=== PATIENT | male | born 1945 | race African-American/Black ===

== ENCOUNTER 2017-04-07 20:33 | Inpatient (IN) | payer MEDICARE, MEDICAID ==
--- NOTE | 2017-04-07 21:18 | RAD ---
FRONTAL VIEW CHEST SERIES 04/07/17 CLINICAL HISTORY: Emergency exam, decreased oxygen saturation. FINDINGS: Lucent hyperinflated lungs are present. The cardiac silhouette is accentuated by portable technique. There is vascular calcifications. Ectasia and tortuosity of the thoracic aorta are present. There is osseous degenerative changes. IMPRESSION: COPD. There is no lobar consolidation visualized. POS: [facility]
[2017-04-07 21:29] LABS: #Lymphocytes 1.5 thou/uL (1.20-3.40); #Monocytes 0.6 thou/uL (0.11-0.59); %Basophils 0.4 % (0.0-1.0); %Eosinophils 0.5 % (0.0-10.0); %Lymphocytes 28.3 % (21.0-51.0); %Monocytes 11.6 % (0.0-10.0); %Neutrophils 59.2 % (42.0-75.0); Hemoglobin 10.3 g/dL (14.0-18.0); Mean Corpuscular HGB CONC 32.5 g/dL (32.0-36.0); Mean Corpuscular Hemoglobin 28.9 pg (27.0-31.0); Mean Corpuscular Volume 89.1 fl (80.0-94.0); Mean Platelet Volume 7.4 fL (7.4-10.4); Platelet Count 130 thou/uL (130-400); RBC Distribution Width 12.7 % (11.5-14.5); Red Blood Cell (RBC) Count 3.56 mill/uL (4.70-6.10); White Blood Cell (WBC) Count 5.1 thou/uL (4.8-10.8)
[2017-04-07 21:47] LABS: ALT (SGPT) 26 U/L (8-55); AST (SGOT) 40 U/L (5-34); Alkaline Phosphatase 104 U/L (40-150); Anion Gap 16 mmol/L (10-20); BUN (Urea Nitrogen) 50 mg/dL (8.4-25.7); Bilirubin, Total 0.2 mg/dL (0.2-1.2); CK (CPK) 569 U/L (30-200); Calc. Creatinine Clearance 0 mL/min (70-130); Calcium 9.4 mg/dL (7.8-10.44); Carbon Dioxide 28 mmol/L (23-31); Chloride 103 mmol/L (98-107); Estimated GFR-MDRD 30; Glucose 114 mg/dL (83-110); Potassium 3.8 mmol/L (3.5-5.1); Sodium 143 mmol/L (136-145)
[2017-04-07 21:51] LABS: Troponin I 0.111 ng/mL (< 0.028)
[2017-04-07 21:54] LABS: CKMB 7.7 ng/mL (0-6.6)
[2017-04-07] MEDS ORDERED: Magnesium Sulfate 2 GM/100 ML BAG ONE (22:03)
[2017-04-07] MEDS ORDERED: methylPREDNISolone Sod Succ/PF 125 MG/2 ML VIAL ONE (22:03)
[2017-04-08 00:51] VITALS: BMI 14.6
[2017-04-08 01:11] LABS: Troponin I 0.133 ng/mL (< 0.028)
[2017-04-08] MEDS ORDERED: Ondansetron ODT 4 MG TAB SL PRN (02:12)
[2017-04-08] MEDS ORDERED: Acetaminophen 325 MG TAB PO PRN ×2 (02:12→07:30)
[2017-04-08] MEDS ORDERED: Ondansetron HCl/PF 4 MG/2 ML Vial IVP PRN (02:12)
[2017-04-08 04:46] LABS: Troponin I 0.101 ng/mL (< 0.028)
[2017-04-08] MEDS ORDERED: HYDROcodone/Acetaminophen 5/325 mg Tablet PO PRN (07:30)
[2017-04-08] MEDS ORDERED: Albuterol Sulfate 2.5 mg/3 ml Neb NEB PRN (07:30)
[2017-04-08] MEDS ORDERED: Ondansetron ODT 4 MG TAB PO PRN (07:30)
[2017-04-08 07:49] LABS: #Lymphocytes 0.5 thou/uL (1.20-3.40); #Monocytes 0.1 thou/uL (0.11-0.59); #Neutrophils 2.7 thou/uL (1.40-6.50); %Basophils 0.2 % (0.0-1.0); %Eosinophils 0.2 % (0.0-10.0); %Lymphocytes 15.2 % (21.0-51.0); %Monocytes 4.3 % (0.0-10.0); %Neutrophils 80.1 % (42.0-75.0); Hemoglobin 10.2 g/dL (14.0-18.0); Mean Corpuscular HGB CONC 32.4 g/dL (32.0-36.0); Mean Corpuscular Volume 89.4 fl (80.0-94.0); Mean Platelet Volume 7.5 fL (7.4-10.4); Platelet Count 126 thou/uL (130-400); RBC Distribution Width 12.6 % (11.5-14.5); Red Blood Cell (RBC) Count 3.53 mill/uL (4.70-6.10); White Blood Cell (WBC) Count 3.4 thou/uL (4.8-10.8)
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
[2017-04-08 08:05] LABS: Anion Gap 11 mmol/L (10-20); BUN (Urea Nitrogen) 50 mg/dL (8.4-25.7); Calc. Creatinine Clearance 21 mL/min (70-130); Calcium 9.2 mg/dL (7.8-10.44); Carbon Dioxide 27 mmol/L (23-31); Chloride 105 mmol/L (98-107); Estimated GFR-MDRD 33; Glucose 197 mg/dL (83-110); Magnesium 2.2 mg/dL (1.6-2.6); Potassium 4.4 mmol/L (3.5-5.1); Sodium 139 mmol/L (136-145)
[2017-04-08 08:13] LABS: CKMB 6.8 ng/mL (0-6.6); Critical Call CKMBM RESULT DECREASING
[2017-04-08] MEDS ORDERED: Prevnar 13-Val Conj/PF 0.5 ML SYRINGE IM ONE (09:00)
[2017-04-08] MEDS ORDERED: FLU VACC TS2017-18 (>65YR) 0.5 ML SYRINGE IM ONE (09:00)
--- NOTE | 2017-04-08 10:18 | PDOC.PN ---
- Subjective Encounter Start Date: 04/08/17 Encounter Start Time: 10:17 Mr. Gallo was seen today in follow-up. He says he is breathing better. He denies having any cough or chest pain. - Objective Resuscitation Status: Resuscitation Status FULL:Full Resuscitation MAR Reviewed: Yes Vital Signs & Weight: Vital Signs (12 hours) Temp Pulse Resp BP Pulse Ox 04/08/17 08:47 98 04/08/17 08:43 75 12 04/08/17 07:30 96.4 F L 80 20 171/92 H 98 04/08/17 03:40 97.7 F 86 20 156/93 H 96 04/08/17 00:52 98.3 F 91 16 97 04/08/17 00:21 98.3 F 91 16 178/113 H 97 Weight Admit Weight 116 lb 9.6 oz Weight 116 lb 9.6 oz I&O: 04/07/17 04/08/17 04/09/17 06:59 06:59 06:59 Intake Total 480 Output Total 375 Balance 105 Result Diagrams: 04/08/17 07:38 04/08/17 07:38 Phys Exam - Physical Examination HEENT: PERRLA Respiratory: wheezing present Fairly tight wheezing Bilaterally, and long expiratory phase Cardiovascular: RRR, no significant murmur Gastrointestinal: soft, non-tender, positive bowel sounds Musculoskeletal: no edema Dx/Plan (1) Acute and chronic respiratory failure Code(s): J96.20 - ACUTE AND CHR RESP FAILURE, UNSP W HYPOXIA OR HYPERCAPNIA Status: Acute (2) COPD exacerbation Code(s): J44.1 - CHRONIC OBSTRUCTIVE PULMONARY DISEASE W (ACUTE) EXACERBATION Status: Acute (3) Hypertension Code(s): I10 - ESSENTIAL (PRIMARY) HYPERTENSION Status: Acute (4) Acute kidney injury superimposed on chronic kidney disease Code(s): N17.9 - ACUTE KIDNEY FAILURE, UNSPECIFIED; N18.9 - CHRONIC KIDNEY DISEASE, UNSPECIFIED Status: Acute (5) Depression Code(s): F32.9 - MAJOR DEPRESSIVE DISORDER, SINGLE EPISODE, UNSPECIFIED Status : Acute - Plan * COPD exacerbation- slowly improving, but he is not stable for discharge yet * Will continue Levaquin, and Duonebs, and IV steroids, but will cut the dose back * HTN- will re-start Metoprolol- ( he may be better served with a Cacium channel pierce- will monitor) * Acute on chronic kidney disease-there are no baseline creatinine to compare- continue IV fluids, and will hold Lisinopril for now- re-check creatinine in the AM * Depression- patient feels like he doesn't have much to live for, with his chronic illness- he feels he has " worked himself to " and " no ones cares "- Will start Zoloft * Continue Walking Program.
[2017-04-08] MEDS: Enoxaparin Sodium 30 MG/0.3 ML SYRINGE SC SCH (11:46)
[2017-04-08] MEDS: Famotidine 20 MG TAB PO SCH ×2 (11:46→20:22)
[2017-04-08 15:59] LABS: CKMB 5.7 ng/mL (0-6.6)
[2017-04-08 16:06] LABS: Troponin I 0.055 ng/mL (< 0.028)
[2017-04-08] MEDS ORDERED: Atorvastatin Calcium 40 MG TAB PO SCH (21:00)
[2017-04-09 05:28] LABS: #Lymphocytes 1.5 thou/uL (1.20-3.40); #Monocytes 0.5 thou/uL (0.11-0.59); #Neutrophils 4.5 thou/uL (1.40-6.50); %Basophils 0.2 % (0.0-1.0); %Eosinophils 0.2 % (0.0-10.0); %Lymphocytes 23.2 % (21.0-51.0); %Monocytes 7.6 % (0.0-10.0); %Neutrophils 68.8 % (42.0-75.0); Hemoglobin 9.2 g/dL (14.0-18.0); Mean Corpuscular HGB CONC 31.2 g/dL (32.0-36.0); Mean Corpuscular Hemoglobin 27.9 pg (27.0-31.0); Mean Corpuscular Volume 89.4 fl (80.0-94.0); Mean Platelet Volume 7.5 fL (7.4-10.4); Platelet Count 137 thou/uL (130-400); RBC Distribution Width 12.6 % (11.5-14.5); White Blood Cell (WBC) Count 6.6 thou/uL (4.8-10.8)
[2017-04-09 06:07] LABS: Anion Gap 13 mmol/L (10-20); BUN (Urea Nitrogen) 46 mg/dL (8.4-25.7); Calc. Creatinine Clearance 23 mL/min (70-130); Calcium 8.6 mg/dL (7.8-10.44); Carbon Dioxide 25 mmol/L (23-31); Chloride 105 mmol/L (98-107); Estimated GFR-MDRD 36; Glucose 96 mg/dL (83-110); Potassium 3.7 mmol/L (3.5-5.1); Sodium 139 mmol/L (136-145)
[2017-04-09] MEDS ORDERED: Clopidogrel Bisulfate 75 MG TAB PO SCH (09:00)
[2017-04-09] MEDS ORDERED: Aspirin 81 mg Enteric Coated Tablet PO SCH (09:00)
[2017-04-09] MEDS ORDERED: Metoprolol Tartrate 25 MG TAB PO SCH (09:00)
[2017-04-09] MEDS: Enoxaparin Sodium 30 MG/0.3 ML SYRINGE SC SCH (10:21)
[2017-04-09] MEDS: Famotidine 20 MG TAB PO SCH (10:21)
--- NOTE | 2017-04-09 11:55 | PDOC.PN ---
- Subjective Encounter Start Date: 04/09/17 Encounter Start Time: 11:53 Mr. Gallo is feeling better today. He had some dyspnea, but otherwise ok. - Objective Resuscitation Status: Resuscitation Status FULL:Full Resuscitation MAR Reviewed: Yes Vital Signs & Weight: Vital Signs (12 hours) Temp Pulse Resp BP Pulse Ox 04/09/17 10:38 99 04/09/17 10:31 87 16 04/09/17 10:20 98.7 F 88 18 143/83 H 97 04/09/17 08:59 97.1 F L 88 18 97 04/09/17 04:00 97.9 F 94 16 139/91 H 97 04/09/17 01:49 74 16 94 L Weight Admit Weight 116 lb 9.6 oz Weight 116 lb 4.8 oz I&O: 04/08/17 04/09/17 04/10/17 06:59 06:59 06:59 Intake Total 480 600 Output Total 375 700 Balance 105 -100 Result Diagrams: 04/09/17 05:05 04/09/17 05:05 Phys Exam - Physical Examination HEENT: PERRLA Respiratory: wheezing present + wheezing and rhonchi- but much improved from yesterday Cardiovascular: RRR, no significant murmur Gastrointestinal: soft, non-tender, positive bowel sounds Musculoskeletal: no edema Dx/Plan (1) Acute and chronic respiratory failure Code(s): J96.20 - ACUTE AND CHR RESP FAILURE, UNSP W HYPOXIA OR HYPERCAPNIA Status: Acute (2) COPD exacerbation Code(s): J44.1 - CHRONIC OBSTRUCTIVE PULMONARY DISEASE W (ACUTE) EXACERBATION Status: Acute (3) Hypertension Code(s): I10 - ESSENTIAL (PRIMARY) HYPERTENSION Status: Acute (4) Acute kidney injury superimposed on chronic kidney disease Code(s): N17.9 - ACUTE KIDNEY FAILURE, UNSPECIFIED; N18.9 - CHRONIC KIDNEY DISEASE, UNSPECIFIED Status: Acute (5) Depression Code(s): F32.9 - MAJOR DEPRESSIVE DISORDER, SINGLE EPISODE, UNSPECIFIED Status : Acute (6) Protein-calorie malnutrition, moderate Code(s): E44.0 - MODERATE PROTEIN-CALORIE MALNUTRITION Status: Acute - Plan * Acute on chronic respiratory failure- improved * Acute on chronic kidney disease- improved * Depression- will continue Zoloft * Hopefully home this afternoon, if he can be weaned off oxygen.
[2017-04-09 12:30] VITALS: TEMP 98.3
[2017-04-09 16:03] VITALS: BP 151/90
--- NOTE | 2017-04-09 18:42 | DIS ---
DATE OF ADMISSION: 04/08/2017 DATE OF DISCHARGE: 04/09/2017 PRIMARY CARE PHYSICIAN: Dr. Javi Peña. DISCHARGE DISPOSITION: Home. PRIMARY DISCHARGE DIAGNOSES: 1. Acute on chronic respiratory failure with hypoxemia. 2. Chronic obstructive pulmonary disease exacerbation. 3. Hypertension. 4. Hyperlipidemia. 5. Coronary artery disease. 6. Depression. DISCHARGE MEDICATIONS: Include Levaquin 500 mg p.o. daily for 5 days, DuoNebs q.4 hours as needed, m etoprolol 25 mg daily, lisinopril 10 mg daily, prednisone 40 mg daily for 5 days, Zoloft 50 mg at bed time, Plavix 75 mg daily, Lipitor 40 mg at bedtime, aspirin 81 mg a day. CODE STATUS: FULL CODE. ALLERGIES: No known drug allergies. HOSPITAL COURSE: Mr. Rivera is a pleasant 72-year-old gentleman who presented to the emergency room w ith complaints of increasing shortness of breath for the past week. He has also been having a cough, which was productive white phlegm. He was seen in the ER, chest x-ray was negative and he was admit yuni for COPD exacerbation. He improved over the course of the next couple of days and was able to be discharged home. His oxygenation improved and his O2 sats were in the 90s at the time of discharge on room air. It was also discovered that he had some symptomatology consistent with depression and all alonso was started on Zoloft for this.
--- NOTE | 2017-04-15 17:24 | EKG ---
Test Reason : Blood Pressure : / mmHG Vent. Rate : 101 BPM Atrial Rate : 101 BPM P-R Int : 124 ms QRS Dur : 096 ms QT Int : 342 ms P-R-T Axes : 080 066 075 degrees QTc Int : 443 ms Sinus tachycardia Left ventricular hypertrophy Borderline ECG Confirmed by DONG AGUIRRE D.O. ([id number]), editor managing newspaper CHIDI BRITT ([id number] on 04/15/2017 5:24:23 PM Referred By: Confirmed By:DONG AGUIRRE D.O.
== END 2017-04-09 17:31 | disposition home or self-care (01) | DRG 189 ==
LOC: ERS 20:33 → 2NO 22:20
PROVIDERS: ADMIT Internal Medicine Infectious Disease; ATTEND Internal Medicine Infectious Disease
DX: J96.21 Acute and chronic respiratory failure with hypoxia (principal); N17.9 Acute kidney failure, unspecified; R64 Cachexia; E44.0 Moderate protein-calorie malnutrition; J44.1 Chronic obstructive pulmonary disease with (acute) exacerbation; E78.5 Hyperlipidemia, unspecified; I25.10 Atherosclerotic heart disease of native coronary artery without angina pectoris; Z95.5 Presence of coronary angioplasty implant and graft; Z87.891 Personal history of nicotine dependence; M19.90 Unspecified osteoarthritis, unspecified site; F32.9 Major depressive disorder, single episode, unspecified; I12.9 Hypertensive chronic kidney disease with stage 1 through stage 4 chronic kidney disease, or unspecified chronic kidney disease; N18.9 Chronic kidney disease, unspecified
CPT/HCPCS: 36415; 71045; 80048; 80053; 82553; 83735; 83880; 84484; 85025; 87804; 90471; 90670; 90682; 93005; 94640; 96365; 96367; 96375; A4216; G0008; G0009; J1650; J1956; J2920; J2930; J3475; J7620; Q2036

== ENCOUNTER 2017-06-06 09:21 | Outpatient (CLI) | payer MEDICARE, MEDICAID ==
[2017-06-06] MEDS ORDERED: ISOVUE-370 76%-LOCM 1 ML ONE (16:10)
== END 2017-06-06 09:22 | disposition home or self-care (01) ==
LOC: BICCT 09:21
PROVIDERS: ATTEND Family Medicine
DX: I71.4 Abdominal aortic aneurysm, without rupture (principal)
CPT/HCPCS: 75635

== ENCOUNTER 2017-09-05 14:07 | Observation (INO) | payer MEDICARE, MEDICAID ==
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
[2017-09-05 16:59] VITALS: BMI 14.3
[2017-09-05] MEDS ORDERED: Enoxaparin Sodium 40 MG/0.4 ML SYRINGE SC SCH (17:15)
[2017-09-05 18:10] LABS: #Lymphocytes 0.9 thou/uL (1.20-3.40); #Monocytes 0.3 thou/uL (0.11-0.59); #Neutrophils 2.7 thou/uL (1.40-6.50); %Basophils 0.6 % (0.0-1.0); %Eosinophils 0.5 % (0.0-10.0); %Lymphocytes 23.3 % (21.0-51.0); %Monocytes 8.4 % (0.0-10.0); %Neutrophils 67.3 % (42.0-75.0); Hemoglobin 10.2 g/dL (14.0-18.0); Mean Corpuscular HGB CONC 33.1 g/dL (32.0-36.0); Mean Corpuscular Hemoglobin 28.7 pg (27.0-31.0); Mean Corpuscular Volume 86.6 fL (78.0-98.0); Mean Platelet Volume 7.1 fL (7.4-10.4); Platelet Count 141 thou/uL (130-400); RBC Distribution Width 12.1 % (11.5-14.5); Red Blood Cell (RBC) Count 3.56 mill/uL (4.70-6.10)
[2017-09-05] MEDS: Sodium Chloride 0.9% 1,000 ML IV SCH (18:11)
--- NOTE | 2017-09-05 18:14 | RAD ---
PA AND LATERAL CHEST X-RAY: 09/05/17 HISTORY: COPD and respiratory distress. COMPARISON: 04/07/17. FINDINGS: Again noted is hyperexpansion of the lungs with lucencies in the upper lung zones suggesting COPD. Kiesha ngs are otherwise clear. The cardiac silhouette and pulmonary vasculature are within normal limits. V ascular calcifications are seen in a tortuous thoracic aorta. There has been no interval change from the prior exam. IMPRESSION: 1. Mild chronic lung changes and evidence of COPD. 2. No acute cardiopulmonary process. POS: [id number]
[2017-09-05 18:31] LABS: ALT (SGPT) 16 U/L (8-55); AST (SGOT) 20 U/L (5-34); Albumin 3.5 g/dL (3.4-4.8); Alkaline Phosphatase 105 U/L (40-150); Anion Gap 16 mmol/L (10-20); BUN (Urea Nitrogen) 39 mg/dL (8.4-25.7); Bilirubin, Total 0.2 mg/dL (0.2-1.2); Calc. Creatinine Clearance 21 mL/min (70-130); Carbon Dioxide 21 mmol/L (23-31); Chloride 106 mmol/L (98-107); Estimated GFR-MDRD 32; Globulin 3.8 g/dL (2.4-3.5); Glucose 90 mg/dL (83-110); Potassium 4.2 mmol/L (3.5-5.1); Protein, Total 7.3 g/dL (5.8-8.1); Sodium 139 mmol/L (136-145)
[2017-09-05 18:36] LABS: CKMB 4.2 ng/mL (0-6.6)
[2017-09-05] MEDS: Clopidogrel Bisulfate 75 MG TAB PO SCH (20:48)
[2017-09-05] MEDS: Famotidine 20 MG TAB PO SCH (20:48)
[2017-09-05] MEDS: Latanoprost 0.005% Ophth Soln 2.5 ml Bottle L EYE SCH (20:51)
[2017-09-05] MEDS ORDERED: Famotidine 20 MG TAB PO SCH (21:00)
[2017-09-05 22:40] LABS: Bilirubin Negative (Negative); Blood, Urine Large (Negative); Clarity CLOUDY (Clear); Glucose, Urine (Dipstick) Negative (Negative); Leukocyte Moderate (Negative); Nitrite Positive (Negative); Protein, Urine (Dipstick) 300 mg/dL (Neg-Trace); Specific Gravity, Urine 1.016 (1.002-1.036); pH, Urine 5.5 (5.0-9.0)
[2017-09-05 22:42] LABS: Bacteria/HPF 1+ HPF (None Seen); Hyaline Casts/LPF 0-3 HYALINE CAST LPF (0-3 Hyaline); Squamous Epithelial 0-3 HPF (0-3); WBC/HPF 21-50 HPF (0-3)
[2017-09-05 22:50] LABS: Yeast-AUWi Flag 399.5 (0-25.0)
[2017-09-05 23:03] LABS: Yeast-All Forms None Seen HPF (None Seen)
[2017-09-06] MEDS: Sodium Chloride 0.9% 1,000 ML IV SCH ×3 (01:18→18:38)
--- NOTE | 2017-09-06 06:02 | PDOC.FM ---
- Subjective Subjective: Mahin Gallo seen at bedside this morning. He states that he is feeling much better and his breathing is much improved. He feels like he is back at his baseline. He denies any chest pain, fever, chills, dyspnea, n/v. - Objective MAR Reviewed: Yes Vital Signs & Weight: Vital Signs (12 hours) Temp Pulse Resp BP Pulse Ox 09/06/17 04:00 98.0 F 80 18 163/92 H 92 L 09/06/17 02:23 71 14 100 09/05/17 23:58 97.8 F 87 18 145/89 H 94 L 09/05/17 22:29 94 14 99 09/05/17 20:00 98.5 F 78 18 127/67 98 09/05/17 19:54 99 09/05/17 19:52 83 14 99 09/05/17 19:30 98 F 94 14 Result Diagrams: 09/06/17 04:36 09/06/17 04:36 <Jethro Gottlieb - Last Filed: 09/06/17 07:47> - Objective Vital Signs & Weight: Vital Signs (12 hours) Temp Pulse Resp BP BP Pulse Ox 09/06/17 20:20 98.1 F 87 16 175/97 H 98 09/06/17 18:42 80 18 100 09/06/17 15:00 98.6 F 88 16 174/102 H 97 09/06/17 14:37 79 16 93 L 09/06/17 10:15 82 16 97 09/06/17 09:43 132/83 Weight Admit Weight 52.254 kg Weight 52.254 kg Result Diagrams: 09/06/17 04:36 09/06/17 04:36 <Rayna Christian - Last Filed: 09/06/17 20:57> Phys Exam - Physical Examination Constitutional: NAD HEENT: moist MMs, sclera anicteric Neck: no JVD, supple, full ROM Respiratory: no rales, no rhonchi, wheezing present end expiratory wheezes present b/l Cardiovascular: RRR, no significant murmur Gastrointestinal: soft, non-tender, no distention Musculoskeletal: no edema, pulses present Neurological: non-focal, normal sensation, moves all 4 limbs Psychiatric: normal affect, A&O x 3 Skin: no rash <Jethro Gottlieb - Last Filed: 09/06/17 07:47> Dx/Plan (1) COPD exacerbation Code(s): J44.1 - CHRONIC OBSTRUCTIVE PULMONARY DISEASE W (ACUTE) EXACERBATION Status: Acute (2) AAA (abdominal aortic aneurysm) Code(s): I71.4 - ABDOMINAL AORTIC ANEURYSM, WITHOUT RUPTURE Status: Chronic (3) Afib Code(s): I48.91 - UNSPECIFIED ATRIAL FIBRILLATION Status: Chronic (4) CAD (coronary artery disease) Code(s): I25.10 - ATHSCL HEART DISEASE OF [place] CORONARY ARTERY W/O ANG PCTRS Status: Chronic (5) COPD (chronic obstructive pulmonary disease) Status: Chronic (6) Hyperlipidemia Code(s): E78.5 - HYPERLIPIDEMIA, UNSPECIFIED Status: Chronic - Plan Plan: 1) COPD exacerbation: - respiratory distress resolved after one Duoneb - CXR showed signs of COPD, no infiltrates - Duonebs q4h HARMAN with q2h PRN - Continue oral prednisone 40mg daily for a minimum of 5 days - Levaquin daily. Patient has never had PFTs so unable to stage his COPD. Mainitain saturations between 92-96%. - Appears volume down, will start NS @ 125. - O2 sats 92% on RA - possible d/c today 2) AAA: - see recent outpatient CT scan showing aortic dilation from hiatus to aortic bifurcation. - Evaluated by CV surgery and referred to [facility] for a highter level of care. 3) Normocytic Anemia: - unchanged from hospital stay in March. Monitor with AM labs 4) Severe protein calorie malnutrition: - very cachectic with lower extremity edema. - Check pre-albumin. High protein diet with BID Ensure. - Consult forensic economist 5) HTN: - restart lisinopril, metoprolol tartrate. No CP, palpitations, or headache 6) Atrial Fibrillation: continue ASA and Plavix <Jethro Gottlieb - Last Filed: 09/06/17 07:47> Attending Addendum - Attending Addendum Date/Time: 09/06/172051 I personally evaluated the patient and discussed the management with Dr. Gottlieb I agree with the History, Examination, Assessment and Plan documented above with any addition or exceptions noted below- Patient feeling better. States that breathing is approaching baseline. Afebrile VSS. A/P: 1) COPD exacerbation - improved; continue duonebs, prednisone and levaquin 2) D/C planning- will have behavioral health case manager evaluate home situation as report from clinic was that patient is homeless. Will evaluate for medication assistance. <Rayna Christian - Last Filed: 09/06/17 20:57>
[2017-09-06 06:23] LABS: #Lymphocytes 1.2 thou/uL (1.20-3.40); #Monocytes 0.4 thou/uL (0.11-0.59); #Neutrophils 2.5 thou/uL (1.40-6.50); %Eosinophils 1.1 % (0.0-10.0); %Lymphocytes 27.6 % (21.0-51.0); %Monocytes 10.6 % (0.0-10.0); %Neutrophils 60.7 % (42.0-75.0); Hemoglobin 9.3 g/dL (14.0-18.0); Mean Corpuscular HGB CONC 32.3 g/dL (32.0-36.0); Mean Corpuscular Hemoglobin 27.9 pg (27.0-31.0); Mean Corpuscular Volume 86.2 fL (78.0-98.0); Platelet Count 145 thou/uL (130-400); RBC Distribution Width 12.2 % (11.5-14.5); Red Blood Cell (RBC) Count 3.33 mill/uL (4.70-6.10); White Blood Cell (WBC) Count 4.2 thou/uL (4.8-10.8)
[2017-09-06] MEDS: Mometasone/Formoterol 120 PUFF INHALER INH SCH ×2 (06:41→18:43)
[2017-09-06 06:47] LABS: ALT (SGPT) 11 U/L (8-55); AST (SGOT) 16 U/L (5-34); Albumin 3.2 g/dL (3.4-4.8); Alkaline Phosphatase 89 U/L (40-150); Anion Gap 12 mmol/L (10-20); BUN (Urea Nitrogen) 39 mg/dL (8.4-25.7); Bilirubin, Total 0.2 mg/dL (0.2-1.2); Calc. Creatinine Clearance 20 mL/min (70-130); Calcium 8.5 mg/dL (7.8-10.44); Carbon Dioxide 26 mmol/L (23-31); Chloride 109 mmol/L (98-107); Estimated GFR-MDRD 32; Globulin 3.1 g/dL (2.4-3.5); Glucose 92 mg/dL (83-110); Potassium 3.8 mmol/L (3.5-5.1); Protein, Total 6.3 g/dL (5.8-8.1); Sodium 143 mmol/L (136-145)
[2017-09-06 07:21] LABS: CKMB 3.2 ng/mL (0-6.6); Troponin I 0.044 ng/mL (< 0.028)
[2017-09-06 07:36] LABS: Free T4 (Free Thyroxine) 1.19 ng/dL (0.70-1.48)
[2017-09-06] MEDS: predniSONE 20 MG TAB PO SCH (09:42)
[2017-09-06] MEDS: Atorvastatin Calcium 40 MG TAB PO SCH (09:42)
[2017-09-06] MEDS: Aspirin 81 mg Enteric Coated Tablet PO SCH (09:43)
[2017-09-06] MEDS: Lisinopril 10 MG TAB PO SCH (09:43)
[2017-09-06] MEDS: Metoprolol Tartrate 25 MG TAB PO SCH (09:43)
[2017-09-06] MEDS ORDERED: cefTRIAXone\\ROCEPHIN 1 GM in Sodium Chloride 0.9% 100 ML IVPB SCH (14:00)
[2017-09-06] MEDS ORDERED: PROVENTIL INHALER 6.7 G (200 INHALATIONS) INH PRN (15:51)
[2017-09-06] MEDS: Famotidine 20 MG TAB PO SCH (20:23)
[2017-09-06] MEDS: Latanoprost 0.005% Ophth Soln 2.5 ml Bottle L EYE SCH (20:23)
[2017-09-06] MEDS: Clopidogrel Bisulfate 75 MG TAB PO SCH (20:23)
[2017-09-07] MEDS: Sodium Chloride 0.9% 1,000 ML IV SCH ×2 (01:53→13:26)
[2017-09-07 04:54] LABS: #Lymphocytes 0.4 thou/uL (1.20-3.40); #Monocytes 0.3 thou/uL (0.11-0.59); #Neutrophils 3.2 thou/uL (1.40-6.50); %Eosinophils 0.1 % (0.0-10.0); %Lymphocytes 10.3 % (21.0-51.0); %Monocytes 6.5 % (0.0-10.0); %Neutrophils 83.1 % (42.0-75.0); Hemoglobin 8.7 g/dL (14.0-18.0); Mean Corpuscular HGB CONC 31.8 g/dL (32.0-36.0); Mean Corpuscular Hemoglobin 27.5 pg (27.0-31.0); Mean Corpuscular Volume 86.5 fL (78.0-98.0); Mean Platelet Volume 7.1 fL (7.4-10.4); Platelet Count 137 thou/uL (130-400); Red Blood Cell (RBC) Count 3.16 mill/uL (4.70-6.10); White Blood Cell (WBC) Count 3.8 thou/uL (4.8-10.8)
[2017-09-07 05:17] LABS: ALT (SGPT) 12 U/L (8-55); AST (SGOT) 15 U/L (5-34); Albumin 3.1 g/dL (3.4-4.8); Alkaline Phosphatase 88 U/L (40-150); Anion Gap 12 mmol/L (10-20); BUN (Urea Nitrogen) 39 mg/dL (8.4-25.7); Bilirubin, Total 0.2 mg/dL (0.2-1.2); Calc. Creatinine Clearance 23 mL/min (70-130); Calcium 8.5 mg/dL (7.8-10.44); Carbon Dioxide 21 mmol/L (23-31); Chloride 110 mmol/L (98-107); Estimated GFR-MDRD 36; Glucose 163 mg/dL (83-110); Potassium 3.9 mmol/L (3.5-5.1); Protein, Total 6.1 g/dL (5.8-8.1); Sodium 139 mmol/L (136-145)
--- NOTE | 2017-09-07 06:46 | PDOC.FM ---
- Subjective Subjective: Mahin Gallo seen at bedside this morning. States he is doing well and feeling much better compared to how he was feeling on admission. He has no complaints this morning and thinks he will go stay with his son after discharge. There were no acute events overnight. He denies fever, chills, abd pain, dyspnea, chest pain. - Objective Vital Signs & Weight: Vital Signs (12 hours) Temp Pulse Resp BP Pulse Ox 09/07/17 03:44 98.4 F 96 16 158/90 H 96 09/07/17 02:21 102 H 16 100 09/07/17 00:27 98.5 F 99 16 157/80 H 97 09/06/17 22:36 94 20 95 09/06/17 20:20 98.1 F 87 16 175/97 H 98 Weight Admit Weight 52.254 kg Weight 52.254 kg I&O: 09/05/17 09/06/17 09/07/17 06:59 06:59 06:59 Intake Total 1979 Output Total 750 Balance 1230 Result Diagrams: 09/07/17 04:18 09/07/17 04:18 <Jethro Gottlieb - Last Filed: 09/07/17 09:34> - Objective Vital Signs & Weight: Vital Signs (12 hours) Temp Pulse Resp BP Pulse Ox 09/07/17 12:55 98.2 F 84 16 169/108 H 95 09/07/17 11:08 90 12 Weight Admit Weight 52.254 kg Weight 52.254 kg I&O: 09/06/17 09/07/17 09/08/17 06:59 06:59 06:59 Intake Total 1979 Output Total 750 Balance 1230 Result Diagrams: 09/07/17 04:18 09/07/17 04:18 <Rayna Christian - Last Filed: 09/07/17 21:38> Phys Exam - Physical Examination Constitutional: NAD HEENT: moist MMs, sclera anicteric Neck: no JVD, supple, full ROM Respiratory: no rales, no rhonchi, wheezing present, clear to auscultation bilateral mild expiratory wheezes Cardiovascular: RRR, no significant murmur Gastrointestinal: soft, non-tender Musculoskeletal: no edema, pulses present Neurological: moves all 4 limbs Psychiatric: normal affect, A&O x 3 <Jethro Gottlieb - Last Filed: 09/07/17 09:34> Dx/Plan (1) COPD exacerbation Code(s): J44.1 - CHRONIC OBSTRUCTIVE PULMONARY DISEASE W (ACUTE) EXACERBATION Status: Acute (2) AAA (abdominal aortic aneurysm) Code(s): I71.4 - ABDOMINAL AORTIC ANEURYSM, WITHOUT RUPTURE Status: Chronic (3) Afib Code(s): I48.91 - UNSPECIFIED ATRIAL FIBRILLATION Status: Chronic (4) CAD (coronary artery disease) Code(s): I25.10 - ATHSCL HEART DISEASE OF [place] CORONARY ARTERY W/O ANG PCTRS Status: Chronic (5) COPD (chronic obstructive pulmonary disease) Status: Chronic (6) Hyperlipidemia Code(s): E78.5 - HYPERLIPIDEMIA, UNSPECIFIED Status: Chronic - Plan Plan: 1) COPD exacerbation: - respiratory distress resolved after one Duoneb - CXR showed signs of COPD, no infiltrates - Duonebs q4h HARMAN with q2h PRN - Continue oral prednisone 40mg daily for a minimum of 5 days - Levaquin daily for 5 days. Patient has never had PFTs so unable to stage his COPD. Mainitain saturations between 92-96%. - Appears volume down, will start NS @ 125. - O2 sats 92% on RA - possible d/c today 2) AAA: - see recent outpatient CT scan showing aortic dilation from hiatus to aortic bifurcation. - Evaluated by CV surgery and referred to [facility] for a highter level of care. 3) Normocytic Anemia: - unchanged from hospital stay in March. Monitor with AM labs 4) Severe protein calorie malnutrition: - very cachectic with lower extremity edema. - Check pre-albumin. High protein diet with BID Ensure. - Consult coffee grower 5) HTN: - restart lisinopril, metoprolol tartrate. No CP, palpitations, or headache 6) Atrial Fibrillation: continue ASA and Plavix 7) Bacteriruia: - Urine culture - Endorses vague sx of UTI, started ceftriaxone yesterday, will transition to PO today in preparation for d/c <Jethro Gottlieb - Last Filed: 09/07/17 09:34> Attending Addendum - Attending Addendum Date/Time: 09/07/17 0018 I personally evaluated the patient and discussed the management with Dr. Gottlieb I agree with the History, Examination, Assessment and Plan documented above with any addition or exceptions noted below- Patient wihtout complaints. States that breathing is back to baseline. Afebrile VSS. A/P: COPD exacerbation- d/c home today with abx, steroids, and inhalers. F/u in clinic in 1-2 weeks. <Rayna Christian - Last Filed: 09/07/17 21:38>
[2017-09-07] MEDS: Mometasone/Formoterol 120 PUFF INHALER INH SCH (06:52)
[2017-09-07] MEDS: Lisinopril 10 MG TAB PO SCH (09:58)
[2017-09-07] MEDS: Atorvastatin Calcium 40 MG TAB PO SCH (09:59)
[2017-09-07] MEDS: Metoprolol Tartrate 25 MG TAB PO SCH (09:59)
[2017-09-07] MEDS: Aspirin 81 mg Enteric Coated Tablet PO SCH (09:59)
[2017-09-07] MEDS: predniSONE 20 MG TAB PO SCH (09:59)
--- NOTE | 2017-09-07 11:47 | DIS-2 ---
DATE OF ADMISSION: 09/05/2017 DATE OF DISCHARGE: 09/07/2017 RESIDENT: Jethro Gottlieb M.D. ADMITTING ATTENDING: Dr. Rayna Christian DISCHARGE ATTENDING: Dr. Rayna Christian PROCEDURES: Urine culture from 09/05/2017, no growth to date CONSULTATIONS: None. PRIMARY DIAGNOSIS: Chronic obstructive pulmonary disease exacerbation. SECONDARY DIAGNOSES: 1. Atrial fibrillation. 2. Severe abdominal aortic aneurysm. 3. Anemia. 4. Hypothyroidism. 5. Severe protein calorie malnutrition. 6. Peripheral vascular disease. 7. Coronary artery disease. 8. Hyperlipidemia. 9. Glaucoma. DISCHARGE MEDICATIONS: Resume home medications includin. Latanoprost 1 drop left eye at bedtime. 2. Albuterol sulfate 2.5 mg nebs q.4 hours p.r.n. 3. Combivent 1 puff INH q.i.d. 4. Symbicort 160/4.5 two puffs INH b.i.d. 5. Lisinopril 10 mg p.o. daily. 6. Plavix 75 mg p.o. at bedtime. 7. Lipitor 40 mg p.o. daily. 8. Aspirin 81 mg p.o. daily. 9. Sertraline 100 mg p.o. daily. 10. Metoprolol tartrate 25 mg p.o. daily. NEW HOME MEDICATIONS: 1. Levofloxacin 750 mg p.o. daily for 4 days. 2. Prednisone 40 mg p.o. daily for 4 days. HISTORY OF PRESENT ILLNESS/HOSPITAL COURSE: Mahin Gallo is a 72-year-old male with past medical his tory of COPD, coronary artery disease, atrial fibrillation who was directly admitted from [facility] by Dr. Muir for dyspnea. The patient stated that he had some shortness of breath fo r the last 5 days, worsened by walking. Denied any fever, headache, diarrhea, constipation, congesti on, sore throat, numbness or tingling or weakness. The patient states that he has not been eating or drinking much because of his financial situation. He is homeless and has not had his medications. He has been unable to get his medications as of late. In the clinic, his respiratory rate was 30. H is O2 sats were 91% on room air and he was treated with a DuoNeb and directly admitted to the [facility]. The patient was placed on a tele observation for a COPD exacerbation, likely secondary to medicat ion noncompliance. The patient's O2 sats improved after receiving 1 DuoNeb. He was started on predn isone and scheduled DuoNebs. He was also started on Levaquin 750 mg daily and fluids. Pertinent labs on admission was white blood cell count 4.0, hemoglobin 10.2, hematocrit 30.8, platele ts 141. He had a BUN of 39 and a creatinine of 2.41, which was elevated from his baseline. On the s econd morning of his admission, the patient's creatinine started to downtrend. The patient's respira tory status improved almost immediately after being admitted and the patient stated he was at his bas cyn on the first morning of his admission. He continued to have normal O2 sats, satting anywhere f rom 96-100% on room air. The patient was cleared for discharge by primary team on 09/07/2017 with in structions to continue Levaquin for 4 days and prednisone for 4 days. The patient also had a UA that showed positive nitrites, moderate leukocyte esterase, 21-50 white blo od cells and 1+ bacteria. The patient had urine culture done which showed no growth to date. On the day of discharge he was relatively asymptomatic from a urinary standpoint. We will continue to watc h urine culture to see if it grows out any bacteria. In the meantime, the patient is being treated w ith levofloxacin. DISPOSITION: Stable. The patient should do well if he is compliant with his home inhalers and arelis nues the Levaquin and prednisone as well as keeping close follow up with his primary care provider. DISCHARGE INSTRUCTIONS: 1. Location: The patient is homeless, but states that he will try to go live with family for the sh ort term until he can find a more permanent place to live. 2. Diet: Heart healthy. 3. Activity: As tolerated. 4. Followup: Follow up with PCP within the next week.
[2017-09-07 13:32] VITALS: BP 169/108; TEMP 98.2
--- NOTE | 2017-09-09 17:43 | EKG ---
Test Reason : Blood Pressure : / mmHG Vent. Rate : 086 BPM Atrial Rate : 086 BPM P-R Int : 132 ms QRS Dur : 092 ms QT Int : 382 ms P-R-T Axes : 086 052 068 degrees QTc Int : 457 ms Sinus rhythm with occasional Premature ventricular complexes Otherwise normal ECG When compared with ECG of 07-APR-2017 20:50, Premature ventricular complexes are now Present Confirmed by ZACK ARVIZU (2) on 09/09/2017 5:43:29 PM Referred By: Confirmed By:ZACK ARVIZU
== END 2017-09-07 13:11 | disposition home or self-care (01) ==
LOC: ERS 14:07 → 2NO 15:15 → INTOOBSV 15:15
PROVIDERS: ADMIT Family Medicine; ATTEND Family Medicine
DX: J44.1 Chronic obstructive pulmonary disease with (acute) exacerbation (principal); I48.91 Unspecified atrial fibrillation; I71.4 Abdominal aortic aneurysm, without rupture; D64.9 Anemia, unspecified; E03.9 Hypothyroidism, unspecified; E43 Unspecified severe protein-calorie malnutrition; I25.2 Old myocardial infarction; I73.9 Peripheral vascular disease, unspecified; I25.10 Atherosclerotic heart disease of native coronary artery without angina pectoris; E78.5 Hyperlipidemia, unspecified; H40.9 Unspecified glaucoma; Z79.82 Long term (current) use of aspirin; Z79.02 Long term (current) use of antithrombotics/antiplatelets; Z79.899 Other long term (current) drug therapy; Z68.1 Body mass index [BMI] 19.9 or less, adult
CPT/HCPCS: 71046; 80053 ×2; 81001; 82553 ×2; 83880; 84134; 84439; 84481; 84484 ×2; 85025 ×2; 87086; 93005; 94640 ×6; 94664; 96372; G0378; 36415; 84443; 93010; J0696; J1650; J7050; J7506; J7620

== ENCOUNTER 2018-05-26 01:23 | Inpatient (IN) | payer MEDICARE, MEDICAID ==
[2018-05-26 02:02] LABS: #Basophils 0.1 thou/uL (0.0-0.2); #Lymphocytes 2.5 thou/uL (1.20-3.40); #Monocytes 0.6 thou/uL (0.11-0.59); #Neutrophils 3.4 thou/uL (1.40-6.50); %Basophils 1.4 % (0.0-1.0); %Eosinophils 0.6 % (0.0-10.0); %Lymphocytes 38.1 % (21.0-51.0); %Monocytes 8.6 % (0.0-10.0); %Neutrophils 51.3 % (42.0-75.0); Hemoglobin 10.1 g/dL (14.0-18.0); Mean Corpuscular HGB CONC 31.4 g/dL (32.0-36.0); Mean Corpuscular Volume 89.3 fL (78.0-98.0); Mean Platelet Volume 8.3 fL (7.4-10.4); Platelet Count 127 thou/uL (130-400); RBC Distribution Width 12.4 % (11.5-14.5); White Blood Cell (WBC) Count 6.6 thou/uL (4.8-10.8)
[2018-05-26 02:14] LABS: ALT (SGPT) 13 U/L (8-55); AST (SGOT) 14 U/L (5-34); Albumin 3.6 g/dL (3.4-4.8); Alkaline Phosphatase 92 U/L (40-150); Anion Gap 18 mmol/L (10-20); BUN (Urea Nitrogen) 64 mg/dL (8.4-25.7); Bilirubin, Total 0.2 mg/dL (0.2-1.2); Calc. Creatinine Clearance 0 mL/min (70-130); Calcium 8.2 mg/dL (7.8-10.44); Carbon Dioxide 18 mmol/L (23-31); Chloride 107 mmol/L (98-107); Estimated GFR-MDRD 19; Globulin 3.7 g/dL (2.4-3.5); Glucose 147 mg/dL (83-110); Potassium 4.2 mmol/L (3.5-5.1); Protein, Total 7.3 g/dL (5.8-8.1); Sodium 139 mmol/L (136-145)
[2018-05-26] MEDS ORDERED: Albuterol Sulfate 2.5 mg/3 ml Neb ONE (02:23)
[2018-05-26] MEDS ORDERED: Albuterol Sulfate 2.5 mg/0.5 ml Neb ONE (02:23)
[2018-05-26 02:43] LABS: CKMB 2.8 ng/mL (0-6.6)
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
[2018-05-26] MEDS ORDERED: Acetaminophen 325 MG TAB PO PRN ×2 (05:18→06:21)
[2018-05-26] MEDS ORDERED: Ondansetron ODT 4 MG TAB SL PRN (05:18)
[2018-05-26] MEDS ORDERED: Sodium Chloride 0.9% 1,000 ML IV SCH (05:18)
[2018-05-26] MEDS ORDERED: Ondansetron PF 4 MG/2 ML Vial IVP PRN ×2 (05:18→06:21)
[2018-05-26] MEDS ORDERED: Albuterol Sulfate 2.5 mg/3 ml Neb NEB PRN (05:19)
[2018-05-26 05:34] VITALS: BMI 14.2
[2018-05-26] MEDS ORDERED: Calcium Carbonate 500 MG ChewTAB PO PRN (06:21)
[2018-05-26] MEDS ORDERED: Ondansetron ODT 4 MG TAB PO PRN (06:21)
[2018-05-26] MEDS ORDERED: Lactated Ringer's 1,000 ML IV SCH (06:21)
--- NOTE | 2018-05-26 07:56 | RAD ---
FRadiograph chest one view: 05/26/2018 1:29 AM HISTORY: 73-year-old male with dyspnea COMPARISON: 09/05/2017 FINDINGS: There has been no interval change. Hyperinflation represent COPD. Tortuosity and atherosclerotic calc ification of thoracic aorta. No pulmonary edema or focal infiltrate. No cardiomegaly. IMPRESSION: 1. Emphysema. 2. No acute findings.
[2018-05-26] MEDS ORDERED: Non-Formulary Item 1 EACH (Aspirin 81 MG) PO SCH (09:00)
[2018-05-26] MEDS: Heparin 5,000 UNITS/ML VIAL SC SCH ×3 (10:01→21:37)
[2018-05-26] MEDS: Lisinopril 10 MG TAB PO SCH (10:02)
[2018-05-26] MEDS: Aspirin 81 mg Enteric Coated Tablet PO SCH (10:02)
[2018-05-26] MEDS: Metoprolol Tartrate 25 MG TAB PO SCH (10:02)
[2018-05-26] MEDS: Lactated Ringer's 1,000 ML IV SCH ×2 (12:11→21:52)
[2018-05-26 13:50] LABS: CKMB 4.2 ng/mL (0-6.6)
[2018-05-26 14:32] LABS: Creatinine, Urine 93.31 mg/dL (63-166)
[2018-05-26] MEDS ORDERED: predniSONE 20 MG TAB PO SCH ×2 (21:00→21:45)
[2018-05-26] MEDS: Atorvastatin Calcium 40 MG TAB PO SCH (21:37)
[2018-05-27 05:26] LABS: #Lymphocytes 0.4 thou/uL (1.20-3.40); #Monocytes 0.2 thou/uL (0.11-0.59); %Eosinophils 0.1 % (0.0-10.0); %Lymphocytes 4.6 % (21.0-51.0); %Monocytes 2.8 % (0.0-10.0); %Neutrophils 92.5 % (42.0-75.0); Hemoglobin 8.4 g/dL (14.0-18.0); Mean Corpuscular HGB CONC 31.8 g/dL (32.0-36.0); Mean Corpuscular Hemoglobin 27.7 pg (27.0-31.0); Mean Corpuscular Volume 87.3 fL (78.0-98.0); Mean Platelet Volume 8.3 fL (7.4-10.4); Platelet Count 148 thou/uL (130-400); RBC Distribution Width 12.6 % (11.5-14.5); Red Blood Cell (RBC) Count 3.03 mill/uL (4.70-6.10); White Blood Cell (WBC) Count 7.6 thou/uL (4.8-10.8)
[2018-05-27 05:49] LABS: Anion Gap 14 mmol/L (10-20); BUN (Urea Nitrogen) 61 mg/dL (8.4-25.7); Calc. Creatinine Clearance 16 mL/min (70-130); Calcium 8.2 mg/dL (7.8-10.44); Carbon Dioxide 23 mmol/L (23-31); Chloride 105 mmol/L (98-107); Estimated GFR-MDRD 23; Glucose 175 mg/dL (83-110); Potassium 4.4 mmol/L (3.5-5.1); Sodium 138 mmol/L (136-145)
[2018-05-27] MEDS: Lactated Ringer's 1,000 ML IV SCH ×4 (06:17→23:20)
--- NOTE | 2018-05-27 06:46 | PDOC.FM ---
- Subjective Subjective: pt resting comfortably in bed, denies SOB or CP - Objective Vital Signs & Weight: Vital Signs (12 hours) Temp Pulse Resp BP BP Pulse Ox 05/27/18 03:51 98.3 F 91 16 132/74 98 05/26/18 22:07 88 16 95 05/26/18 19:52 98.5 F 95 18 135/70 95 Weight Admit Weight 51.755 kg Weight 53.977 kg I&O: 05/25/18 05/26/18 05/27/18 06:59 06:59 06:59 Intake Total 2480 Output Total 1300 Balance 1180 Result Diagrams: 05/27/18 04:45 05/27/18 13:46 Phys Exam - Physical Examination Constitutional: NAD HEENT: moist MMs Neck: full ROM good air movement, mild wheezing presnt Cardiovascular: RRR, no significant murmur Gastrointestinal: no distention Musculoskeletal: no edema, pulses present Neurological: moves all 4 limbs Lymphatic: no nodes Psychiatric: normal affect Skin: no rash Dx/Plan (1) Acute and chronic respiratory failure Code(s): J96.20 - ACUTE AND CHR RESP FAILURE, UNSP W HYPOXIA OR HYPERCAPNIA Status: Acute (2) Acute kidney injury superimposed on chronic kidney disease Code(s): N17.9 - ACUTE KIDNEY FAILURE, UNSPECIFIED; N18.9 - CHRONIC KIDNEY DISEASE, UNSPECIFIED Status: Acute (3) COPD exacerbation Code(s): J44.1 - CHRONIC OBSTRUCTIVE PULMONARY DISEASE W (ACUTE) EXACERBATION Status: Acute (4) AAA (abdominal aortic aneurysm) Code(s): I71.4 - ABDOMINAL AORTIC ANEURYSM, WITHOUT RUPTURE Status: Chronic (5) Afib Code(s): I48.91 - UNSPECIFIED ATRIAL FIBRILLATION Status: Chronic (6) CAD (coronary artery disease) Code(s): I25.10 - ATHSCL HEART DISEASE OF [place] CORONARY ARTERY W/O ANG PCTRS Status: Chronic (7) Glaucoma Code(s): H40.9 - UNSPECIFIED GLAUCOMA Status: Chronic (8) Hyperlipidemia Code(s): E78.5 - HYPERLIPIDEMIA, UNSPECIFIED Status: Chronic (9) Hypertension Code(s): I10 - ESSENTIAL (PRIMARY) HYPERTENSION Status: Chronic - Plan Plan: COPD exacerbation - pt is improved after duonebs and steroids via EMS, he likely will not need ABX with no fever or leukocytosis or changes in sputum - prednisone 40mg daily -duonebs -recommend walking O2 test when pt is stable ÁNGEL on CKD - BUN/Cr is not above 20, mild hypovolemia may also contribute to injury - LR at 120ml/hr - FeNa at 1.5%, likely intrinsic disease Indeterminate trop - pt not having any cp, most likely demand - trops downtrended Anemia - likely multifactorial, pt is malnourished, and has kidney disease - dietary consult, worsening 2/2 dilutional, no reported bleeding - monitor HTN -restart previously listed home meds HLD -restart previously listed home meds Glaucoma -restart previously listed home meds Abdominal Aortic Aneurysm -pt has recommendations to f/u in [place] code: full ppx: lovenox PCP: erickson dispo: walking O2 test today, then stable for DC Addendum - Attending - Attending Attestation Date/Time: 05/27/18 4864 I personally evaluated the patient and discussed the management with Dr. Davis. I agree with the History, Examination, Assessment and Plan documented above with any addition or exceptions noted below. The patient was resting comfortably but was able to sit up on his own for me to listen to his lungs. No wheezing noted this morning. Pt's ÁNGEL is slowly improving. Will continue IV fluids today and continue trending her creatinine.
[2018-05-27] MEDS: Lisinopril 10 MG TAB PO SCH (09:34)
[2018-05-27] MEDS: Metoprolol Tartrate 25 MG TAB PO SCH (09:34)
[2018-05-27] MEDS: predniSONE 20 MG TAB PO SCH (09:34)
[2018-05-27] MEDS: Aspirin 81 mg Enteric Coated Tablet PO SCH (09:34)
[2018-05-27] MEDS: Heparin 5,000 UNITS/ML VIAL SC SCH ×3 (09:35→20:55)
[2018-05-27 14:35] LABS: Anion Gap 18 mmol/L (10-20); BUN (Urea Nitrogen) 60 mg/dL (8.4-25.7); Calc. Creatinine Clearance 16 mL/min (70-130); Calcium 8.4 mg/dL (7.8-10.44); Carbon Dioxide 21 mmol/L (23-31); Chloride 103 mmol/L (98-107); Estimated GFR-MDRD 23; Glucose 139 mg/dL (83-110); Sodium 137 mmol/L (136-145)
[2018-05-27] MEDS: Atorvastatin Calcium 40 MG TAB PO SCH (20:54)
[2018-05-28 01:23] LABS: Magnesium 1.6 mg/dL (1.6-2.6); Phosphorus 3.1 mg/dL (2.3-4.7)
[2018-05-28 01:30] LABS: Troponin I 0.059 ng/mL (< 0.028)
[2018-05-28 05:22] LABS: #Lymphocytes 0.5 thou/uL (1.20-3.40); #Monocytes 0.4 thou/uL (0.11-0.59); #Neutrophils 7.8 thou/uL (1.40-6.50); %Eosinophils 0.1 % (0.0-10.0); %Lymphocytes 6.2 % (21.0-51.0); %Monocytes 4.9 % (0.0-10.0); %Neutrophils 88.8 % (42.0-75.0); Hemoglobin 8.4 g/dL (14.0-18.0); Mean Corpuscular Hemoglobin 28.1 pg (27.0-31.0); Platelet Count 176 thou/uL (130-400); RBC Distribution Width 12.7 % (11.5-14.5); Red Blood Cell (RBC) Count 2.97 mill/uL (4.70-6.10); White Blood Cell (WBC) Count 8.8 thou/uL (4.8-10.8)
[2018-05-28 05:46] LABS: Anion Gap 14 mmol/L (10-20); BUN (Urea Nitrogen) 62 mg/dL (8.4-25.7); Calc. Creatinine Clearance 16 mL/min (70-130); Carbon Dioxide 22 mmol/L (23-31); Chloride 105 mmol/L (98-107); Estimated GFR-MDRD 23; Glucose 157 mg/dL (83-110); Sodium 136 mmol/L (136-145)
--- NOTE | 2018-05-28 06:36 | PDOC.FM ---
- Subjective Subjective: Mahin Gallo seen at bedside this morning. He has no complaints, states that he is feeling better, about at his baseline. States he is normally on 2.5 L O2 at home and he has been stable on 2 L O2 here. Denies any acute events overnight. Denies fever, chills, chest pain, n/v. - Objective MAR Reviewed: Yes Vital Signs & Weight: Vital Signs (12 hours) Temp Pulse Resp BP BP Pulse Ox 05/28/18 04:30 97.5 F L 89 16 125/70 98 05/27/18 23:00 97.3 F L 91 16 128/82 99 05/27/18 22:37 95 16 94 L 05/27/18 18:53 98.6 F 100 20 159/87 H 96 Weight Admit Weight 51.755 kg Weight 53.977 kg I&O: 05/26/18 05/27/18 05/28/18 06:59 06:59 06:59 Intake Total 2480 3885 Output Total 1300 2000 Balance 1180 1885 Result Diagrams: 05/28/18 04:56 05/28/18 04:56 Phys Exam - Physical Examination Constitutional: NAD HEENT: moist MMs, sclera anicteric Neck: supple, full ROM Respiratory: no rales, no rhonchi, wheezing present, clear to auscultation bilateral mild wheezes Cardiovascular: RRR, no significant murmur Gastrointestinal: soft, non-tender, no distention Musculoskeletal: no edema, pulses present Neurological: non-focal, normal sensation, moves all 4 limbs Psychiatric: normal affect, A&O x 3 Skin: no rash Dx/Plan (1) Acute and chronic respiratory failure Code(s): J96.20 - ACUTE AND CHR RESP FAILURE, UNSP W HYPOXIA OR HYPERCAPNIA Status: Acute (2) Acute kidney injury superimposed on chronic kidney disease Code(s): N17.9 - ACUTE KIDNEY FAILURE, UNSPECIFIED; N18.9 - CHRONIC KIDNEY DISEASE, UNSPECIFIED Status: Acute (3) COPD exacerbation Code(s): J44.1 - CHRONIC OBSTRUCTIVE PULMONARY DISEASE W (ACUTE) EXACERBATION Status: Acute (4) AAA (abdominal aortic aneurysm) Code(s): I71.4 - ABDOMINAL AORTIC ANEURYSM, WITHOUT RUPTURE Status: Chronic (5) CAD (coronary artery disease) Code(s): I25.10 - ATHSCL HEART DISEASE OF [place] CORONARY ARTERY W/O ANG PCTRS Status: Chronic (6) Hyperlipidemia Code(s): E78.5 - HYPERLIPIDEMIA, UNSPECIFIED Status: Chronic (7) Hypertension Code(s): I10 - ESSENTIAL (PRIMARY) HYPERTENSION Status: Chronic - Plan Plan: COPD exacerbation - increased dyspnea and productive cough, s/p duonebs and steroids in EMS - continue prednisone 40mg daily - continue duonebs - recommend walking O2 test when pt is stable, likely d/c today ÁNGEL on CKD - BUN/Cr is not above 20, mild hypovolemia may also contribute to injury - LR at 120ml/hr - FeNa at 1.5%, likely intrinsic disease - Cr has stabilized - Will need close outpatient nephro follow up Indeterminate trop - pt not having any cp, most likely demand Anemia - likely multifactorial, pt is malnourished, and has kidney disease - dietary consult, worsening 2/2 dilutional, no reported bleeding - monitor HTN - restart previously listed home meds HLD - restart previously listed home meds Glaucoma - restart previously listed home meds Abdominal Aortic Aneurysm - pt has recommendations to f/u in [place] code: full ppx: lovenox PCP: re[facility]on dispo: walking O2 test today, then stable for DC, will need close follow up with nephro Addendum - Attending - Attending Attestation Date/Time: 05/28/18 [id number] I personally evaluated the patient and discussed the management with Dr. Gottlieb. I agree with and repeated the History, Examination, Assessment and Plan documented above with any addition or exceptions noted below. Jan TSH - send FT4 ÁNGEL on CKD - will d/w nephro A on C Resp fail - improved since admission, continue steroids and nebs Elevated troponin - myocardial injury without ischemia Await rec's then possible d/c.
[2018-05-28] MEDS: Aspirin 81 mg Enteric Coated Tablet PO SCH (09:55)
[2018-05-28] MEDS: Lisinopril 10 MG TAB PO SCH (09:55)
[2018-05-28] MEDS: Metoprolol Tartrate 25 MG TAB PO SCH (09:55)
[2018-05-28] MEDS: predniSONE 20 MG TAB PO SCH (09:56)
[2018-05-28] MEDS: Heparin 5,000 UNITS/ML VIAL SC SCH ×2 (09:56→17:11)
[2018-05-28] MEDS: Lactated Ringer's 1,000 ML IV SCH ×2 (11:43→17:35)
[2018-05-28 18:46] LABS: Iron 46 ug/dL (65-175); Iron Binding Capacity, Total 194 mcg/dL (261-462)
--- NOTE | 2018-05-28 19:28 | ULT ---
ULTRASOUND RENAL BILATERAL STANDARD: History: Acute kidney injury. Comparison: None. FINDINGS: Real-time grayscale and color evaluation of the kidneys and urinary bladder was performed. The left k idney is not visualized. Mild increased hepatic echotexture of the right kidney. Right kidney measure s 9.2 x 3.4 x 5.5 cm. The urinary bladder pre-void volume is 233 ml. IMPRESSION: 1. Nonvisualization of the left kidney. If the patient is not known to have a prior nephrectomy or co ngenital absence, CT may be beneficial. 2. Mild increased echotexture right kidney without evidence of obstructive uropathy. POS: HOME
[2018-05-28] MEDS: Atorvastatin Calcium 40 MG TAB PO SCH (20:53)
--- NOTE | 2018-05-29 01:23 | CON ---
DATE OF CONSULTATION: CONSULTING PHYSICIAN: Kevin Crews MD. REASON FOR CONSULTATION: Azzef-be-qaachqo kidney disease. IMPRESSION: 1. Nxkqz-wr-nycfruo kidney disease versus progression of baseline chronic kidney disease. 2. Anemia, query anemia of chronic kidney disease plus or minus iron deficiency. 3. Hyperthyroidism. 4. Chronic obstructive pulmonary disease exacerbation. PLAN: 1. Discontinue IV fluid. 2. Renal ultrasound to evaluate the degree of chronicity. 3. Iron studies. 4. Bone mineral evaluation by checking the parathyroid hormone. 5. We will hold lisinopril for now. If the blood pressure , we will recommend use of hydralazine for now. 6. Renally dose all medications Lovenox. 7. Recommend proper workup of this patient's thyroid state as the patient has clinical features and laboratory features of hyperthyroid state. HISTORY: A 73-year-old gentleman who presented here with features of COPD exacerbation. The patient, however, noted with elevated creatinine above his baseline creatinine that is in the mid 2s. The patient while given the history seems to be having some shortness of breath, unable to complete full sentences at times. In any case, the reason for the consultation is because of elevated creatinine above his baseline. PAST MEDICAL HISTORY: Significant for COPD, hypertension, chronic kidney disease, atrial fibrillation, coronary artery disease, peripheral vascular disease, and AAA. FAMILY HISTORY: Significant for renal failure. The mother was on dialysis and brother was transiently on dialysis. SOCIAL HISTORY: Significant for tobacco use, quit about 6 years ago. Denies alcohol or illicit drug use. REVIEW OF SYSTEMS: As documented in the body of the history. All other systems were reviewed and were found not to be significantly related to presenting illness. PHYSICAL EXAMINATION: GENERAL: The patient was found to be in some respiratory distress. VITAL SIGNS: Noted with the following vital signs; afebrile, temperature 98.3, pulse 87, respiratory rate of 16, O2 saturations are 98%, and blood pressure 129/77. HEENT: Unremarkable. CARDIOVASCULAR: First and second heart sounds were heard. RESPIRATORY SYSTEM: Showed some wheezes. DIGESTIVE SYSTEM: Revealed a benign abdomen. EXTREMITIES: No peripheral edema. SKIN: No new gross rash. LYMPHATICS: No peripheral lymphadenopathy. SUMMARY: A 73-year-old gentleman who presented here with features of chronic obstructive pulmonary disease exacerbation, now experiencing worsening renal function. Thank you for this consultation. We will follow with you. Job ID: [id number]
[2018-05-29 05:12] LABS: #Lymphocytes 0.5 thou/uL (1.20-3.40); #Monocytes 0.4 thou/uL (0.11-0.59); #Neutrophils 6.4 thou/uL (1.40-6.50); %Basophils 0.1 % (0.0-1.0); %Eosinophils 0.1 % (0.0-10.0); %Lymphocytes 6.4 % (21.0-51.0); %Monocytes 5.2 % (0.0-10.0); %Neutrophils 88.2 % (42.0-75.0); Mean Corpuscular HGB CONC 31.9 g/dL (32.0-36.0); Mean Platelet Volume 7.9 fL (7.4-10.4); Platelet Count 185 thou/uL (130-400); RBC Distribution Width 12.7 % (11.5-14.5); Red Blood Cell (RBC) Count 3.19 mill/uL (4.70-6.10); White Blood Cell (WBC) Count 7.2 thou/uL (4.8-10.8)
[2018-05-29 05:26] LABS: Albumin 2.8 g/dL (3.4-4.8); Anion Gap 11 mmol/L (10-20); BUN (Urea Nitrogen) 64 mg/dL (8.4-25.7); BUN/Creatinine Ratio 21.12; Calc. Creatinine Clearance 17 mL/min (70-130); Calcium 8.1 mg/dL (7.8-10.44); Carbon Dioxide 26 mmol/L (23-31); Chloride 106 mmol/L (98-107); Estimated GFR-MDRD 25; Glucose 144 mg/dL (83-110); Phosphorus 2.9 mg/dL (2.3-4.7); Potassium 5.1 mmol/L (3.5-5.1); Sodium 138 mmol/L (136-145)
[2018-05-29] MEDS ORDERED: Enoxaparin Sodium 30 MG/0.3 ML SYRINGE SC SCH (09:00)
--- NOTE | 2018-05-29 09:17 | PDOC.FM ---
- Subjective Subjective: Mahin Gallo seen at bedside this morning. He states he has continued to have some dyspnea but he has been ambulating around the halls well. He denies any vision changes, headaches, fever, chills, chest pain, n/v, abdominal pain. He has been seen by Nephrology who is evaluating him for CKD. He did have mild improvement in kidney function today. There were no acute events overnight. - Objective MAR Reviewed: Yes Vital Signs & Weight: Vital Signs (12 hours) Temp Pulse Resp BP Pulse Ox 05/29/18 07:50 97.9 F 76 12 142/76 H 97 05/29/18 06:52 93 L 05/29/18 06:51 90 16 93 L 05/29/18 04:48 98.5 F 99 14 140/81 99 05/29/18 01:58 96 16 99 05/28/18 23:45 98.7 F 100 16 133/77 99 05/28/18 21:43 102 H 16 94 L Weight Admit Weight 51.755 kg Weight 53.977 kg I&O: 05/28/18 05/29/18 05/30/18 06:59 06:59 06:59 Intake Total 3885 2250 Output Total 2000 950 Balance 1885 1300 Result Diagrams: 05/29/18 04:49 05/29/18 04:49 Phys Exam - Physical Examination Constitutional: NAD HEENT: moist MMs, sclera anicteric Neck: supple, full ROM Respiratory: no rales, no rhonchi, clear to auscultation bilateral minimal wheezes heard bilaterally Cardiovascular: RRR, no significant murmur Gastrointestinal: soft, non-tender, no distention Musculoskeletal: no edema, pulses present Neurological: non-focal, normal sensation, moves all 4 limbs Psychiatric: normal affect, A&O x 3 Skin: no rash Dx/Plan (1) Acute and chronic respiratory failure Code(s): J96.20 - ACUTE AND CHR RESP FAILURE, UNSP W HYPOXIA OR HYPERCAPNIA Status: Acute (2) Acute kidney injury superimposed on chronic kidney disease Code(s): N17.9 - ACUTE KIDNEY FAILURE, UNSPECIFIED; N18.9 - CHRONIC KIDNEY DISEASE, UNSPECIFIED Status: Acute (3) COPD exacerbation Code(s): J44.1 - CHRONIC OBSTRUCTIVE PULMONARY DISEASE W (ACUTE) EXACERBATION Status: Acute (4) AAA (abdominal aortic aneurysm) Code(s): I71.4 - ABDOMINAL AORTIC ANEURYSM, WITHOUT RUPTURE Status: Chronic (5) CAD (coronary artery disease) Code(s): I25.10 - ATHSCL HEART DISEASE OF [place] CORONARY ARTERY W/O ANG PCTRS Status: Chronic (6) Hyperlipidemia Code(s): E78.5 - HYPERLIPIDEMIA, UNSPECIFIED Status: Chronic (7) Hypertension Code(s): I10 - ESSENTIAL (PRIMARY) HYPERTENSION Status: Chronic - Plan Plan: COPD exacerbation - increased dyspnea and productive cough, s/p duonebs and steroids in EMS - continue prednisone 40mg daily - continue duonebs - stable for discharge from respiratory standpoint ÁNGEL on CKD - BUN/Cr is not above 20, mild hypovolemia may also contribute to injury - LR at 120ml/hr - FeNa at 1.5%, likely intrinsic disease - Nephrology consulted, appreciate recs - Renal US showed absence of left kidney, no hx of congenital absence or nephrectomy - Mild improvement in kidney function overnight - Discharge pending Nephro recs Low TSH - patient asymptomatic, denies fatigue, cold intolerance, muscle cramps, headache, weight gain - TSH of 0.06 with low normal free T4 and low T3 - likely secondary to nonthyroidal illness - recommend repeating TSH in 4-8 weeks Indeterminate trop - pt not having any cp, most likely demand Anemia - likely multifactorial, pt is malnourished, and has kidney disease - dietary consult, worsening 2/2 dilutional, no reported bleeding - monitor HTN - restart previously listed home meds HLD - restart previously listed home meds Glaucoma - restart previously listed home meds Abdominal Aortic Aneurysm - pt has recommendations to f/u in [place] code: full ppx: lovenox PCP: erickson dispo: pending discharge recommendations from nephrology Addendum - Attending - Attending Attestation Date/Time: 05/29/18 7765 I personally evaluated the patient and discussed the management with Dr. Gottlieb. I agree with and repeated the History, Examination, Assessment and Plan documented above with any addition or exceptions noted below. Patient improved from a respiratory standpoint. Plan for d/c pending nephrology follow up.
[2018-05-29] MEDS: Metoprolol Tartrate 25 MG TAB PO SCH (09:19)
[2018-05-29] MEDS: Aspirin 81 mg Enteric Coated Tablet PO SCH (09:19)
[2018-05-29] MEDS: predniSONE 20 MG TAB PO SCH (09:19)
--- NOTE | 2018-05-29 13:15 | PQF ---
[employer] Mark[employer] Crystal Reports Winform ViewerROGHARSHA, AELTA PRADO [id number] [address] [place] [address] [id number] CLINICAL DOCUMENTATION IMPROVEMENT CLARIFICATION FORM: ICD-10 Updated PLEASE DO AN ADDENDUM TO THE PROGRESS NOTE WITH ANY DOCUMENTATION UPDATES OR ADDITIONS AND CARRY THROUGH TO DC SUMMARY. THANK YOU. Date: 05/29/18 ATTN : Dr. Gottlieb Please exercise your independent, professional judgment in responding to the clarification form. Clinical indicators are provided on the bottom of this form for your review Please check appropriate box(s): [ x ] Protein Calorie Malnutrition: [ ] Mild [ x ] Moderate [ ] Severe [ ] Other Malnutrition (please specify) __ [ ] Underweight without malnutrition [ ] Cachexia [ ] Other diagnosis [ ] Unable to determine In addition, please specify: Present on Admission (POA): [ x ] Yes [ ] No [ ] Unable to determine CLINICAL INDICATORS - SIGNS / SYMPTOMS / LABS Malnutrition--> Severly malnourished/underweight with COPD/CKD; malnourished per H&P BMI of 14.9 per [employer] Two or More of the Following: Weight Loss--> 05/26 RD: 34% wt loss over the past ~1 year Loss of Muscle Mass/Subcutaneous Fat--> 05/26 RD: severe muscle and fat wasting to upper and lower extremities, buccal and dorsal interossi fat wasting and temporal muscle wasting RISK FACTORS Change in appetite / nausea / vomiting / diarrhea--> 05/26 RD: chronic poor appetite Chronic illness COPD on home O2, CKD per H&P TREATMENT: Dietary consult 05/26 orders Nutritional supplements 05/26 [facility] TID per orders to date Moderate Malnutrition (in acute illness) Energy Intake: <75% of estimated energy requirement for > 7 days Weight Loss: 1-2%/1 week; 5%/ 1 month; 7.5%/3 months Other: mild body fat loss; mild muscle mass loss; mild fluid accumulation; Severe Malnutrition (in acute illness) Energy Intake: < 50% of estimated energy requirement for > 5 days Weight Loss: >1-2%/1 week; >5%/1 month; >7.5%/3 months [employer] Crystal Reports Winform ViewerOther: moderate body fat loss; moderate muscle mass loss; moderate- severe fluid accumulation; measurably reduced fluid designer strength Moderate Malnutrition (in chronic illness) Energy Intake: <75% of estimated energy requirement for >1 month Weight Loss: 5%/1 month; 7.5%/3 months; 10%/6 months; 20%/1 year Other: mild body fat loss; mild muscle mass loss; mild fluid accumulation Severe Malnutrition (in chronic illness) Energy Intake: <75% of estimated energy requirement for >1 month Weight Loss: >5%/1 month; >7.5%/3 months; >10%/6 months; >20%/1 year Other: severe body fat loss; severe muscle mass loss; severe fluid accumulation ; measurably reduced fluid designer strength (This form is maintained as a part of the permanent medical record) 2014 [employer]. All Rights Reserved Dayami Cruz RN, BSN, CCDS [email or web address]
[2018-05-29 15:25] VITALS: BP 136/87; TEMP 98.4
--- NOTE | 2018-05-29 19:51 | PRG ---
DATE OF SERVICE: 05/29/2018 SUBJECTIVE: The patient was noted with the following vital signs. OBJECTIVE: VITAL SIGNS: Afebrile, temperature 98.4; pulse 90; respiratory rate of 12; O2 saturations 96% with blood pressure 136/87. HEENT: Unremarkable. CARDIOVASCULAR SYSTEM: First and second heart sounds were heard. RESPIRATORY SYSTEM: Clear to auscultation with some wheezes. DIGESTIVE SYSTEM: Revealed a benign abdomen. EXTREMITIES: No peripheral edema. SKIN: No new gross rash. LYMPHATICS: No peripheral lymphadenopathy. LABORATORY INVESTIGATION: Showed a hemoglobin of 9. Chemistry showed a creatinine down to 3.03 with a BUN of 64. Iron studies showed iron level of 46 and saturation of 24. PTH of 347. IMPRESSION: 1. Advanced chronic kidney disease, stage 4 in the context of problem #2. 2. Solitary kidney, very congenital versus acquired. 3. hyperparathyroidism in the context of advanced kidney disease. 4. Anemia, partly anemia of chronic kidney disease. PLAN: 1. Very close outpatient Nephrology monitoring strongly recommended, in fact I will recommend this patient to follow up with me within the next 4 weeks. 2. Renally dose all medications and avoid potentially nephrotoxic agents. 3. The patient likely to benefit from active vitamin D. 4. Further management to be dependent on the clinical course. Job ID: [id number]
--- NOTE | 2018-05-29 22:25 | EKG ---
Test Reason : Blood Pressure : / mmHG Vent. Rate : 090 BPM Atrial Rate : 090 BPM P-R Int : 128 ms QRS Dur : 102 ms QT Int : 362 ms P-R-T Axes : 081 050 080 degrees QTc Int : 442 ms Normal sinus rhythm Nonspecific T wave abnormality Abnormal ECG When compared with ECG of 05-SEP-2017 17:41, Premature ventricular complexes are no longer Present Nonspecific T wave abnormality now evident in Lateral leads Confirmed by Rhianna LEVY ([id number]) on 05/29/2018 10:24:53 PM Referred By: JEANETH Confirmed By:Rhianna LEVY
--- NOTE | 2018-05-30 00:46 | DIS ---
DATE OF ADMISSION: 05/26/2018 DATE OF DISCHARGE: 05/29/2018 RESIDENT PHYSICIAN: Dr. Jethro Gottlieb. CONSULTS: 1. Dr. Brown, Nephrology. 2. O2 evaluation and treat. 3. Palliative care. 4. Case management. PROCEDURES: 1. Chest x-ray from 05/26/2018. Impression: Emphysema, no acute findings. 2. Renal ultrasound from 05/28/2018. Impression: Nonvisualization of the left kidney. Mild increased echotexture. Right kidney without evidence of obstructive uropathy. PRIMARY DIAGNOSES: 1. Acute on chronic respiratory failure secondary to chronic obstructive pulmonary disease exacerbation. 2. Acute kidney injury superimposed on chronic kidney disease. SECONDARY DIAGNOSES: 1. Chronic obstructive pulmonary disease. 2. Hypertension. 3. Depression. 4. Moderate protein calorie malnutrition. 5. Atrial fibrillation. 6. Peripheral vascular disease. 7. Abdominal aortic aneurysm. 8. Coronary artery disease. 9. Hyperlipidemia. DISCHARGE MEDICATIONS: Resume home medications, includin. Ipratropium/albuterol 1 puff INH q.i.d. 2. Symbicort 2 puffs INH b.i.d. 3. Plavix 75 mg p.o. daily. 4. Lipitor 40 mg p.o. h.s. 5. Aspirin 81 mg p.o. daily. 6. Sertraline 50 mg p.o. daily. 7. Metoprolol tartrate 25 mg p.o. daily. 8. Levaquin 750 mg p.o. daily. 9. Albuterol sulfate 2.5 mg nebs q.4 hours p.r.n. 10. Amlodipine 5 mg p.o. daily. New home medications include: 1. Prednisone 40 mg p.o. daily for 1 more day. HISTORY OF PRESENT ILLNESS/HOSPITAL COURSE: Mahin Gallo is a 73-year-old male with a past medical history of COPD, on home O2, who presented with a chief complaint of increased shortness of breath. The patient reports that he has had years of shortness of breath and cough productive of clear sputum that has slowly gotten worse until the day of admission, it got so bad, he decided to go to the ER. The patient reported difficulty obtaining albuterol from the pharmacy and has not used in 1 week which has made his symptoms worse. He denied any fevers, chills, or changes in sputum quality. In the ED, he received DuoNeb x3 and steroids. Upon presentation, the patient's vitals were blood pressure 134/97, pulse 113, respiratory rate 18, temperature 99.2, O2 sat 98% on 2 L. Presenting physical exam findings include expiratory wheezing in bilateral lung apices and mid lung, decreased breath sounds in bilateral lung bases. Initial labs showed white blood cell count of 6.6, hemoglobin 10.2, hematocrit 32.2, platelets 127, creatinine 3.89, BUN 64. The patient was admitted for acute on chronic respiratory failure secondary to COPD exacerbation. He was started on prednisone 40 mg daily, DuoNeb, and Levaquin. The patient remained stable from a respiratory standpoint, not requiring much more than baseline O2 supplementation. Fluids were started due to acute kidney injury. There was no resolution of his acute kidney injury over the next couple of days, and Nephrology was consulted, Dr. Brown evaluated lab work showing an elevated PTH, low albumin at 2.8. The patient was also anemic. Also, he ordered an ultrasound, findings are as above. The patient was stable, doing well from a respiratory standpoint on 05/29 and did show some mild improvement of his kidney function over the next [address] Brown got in the case. I spoke to Dr. Brown on 05/29, who agreed with discharging the patient and recommended that he have close followup within the next 4 weeks at his own clinic for further evaluation and close monitoring. The patient did well with physical therapy during his hospital stay, ambulating through the halls without any respiratory distress. DISPOSITION: Stable. The patient is to continue his home inhalers. DISCHARGE INSTRUCTIONS: 1. Location, home. 2. Activity, as tolerated. 3. Diet, heart healthy and renal diet. 4. Follow up with primary care provider within the next week and Dr. Brown within the next 4 weeks. Job ID: [id number]
== END 2018-05-29 18:45 | disposition home or self-care (01) | DRG 189 ==
LOC: ERS 01:23 → OBSVTOIN 05:06 → 2SW 05:06
PROVIDERS: ADMIT Family Medicine; ATTEND Family Medicine
DX: J96.20 Acute and chronic respiratory failure, unspecified whether with hypoxia or hypercapnia (principal); J44.1 Chronic obstructive pulmonary disease with (acute) exacerbation; N17.9 Acute kidney failure, unspecified; E44.0 Moderate protein-calorie malnutrition; Z68.1 Body mass index [BMI] 19.9 or less, adult; Z66 Do not resuscitate; I48.91 Unspecified atrial fibrillation; I25.10 Atherosclerotic heart disease of native coronary artery without angina pectoris; J44.9 Chronic obstructive pulmonary disease, unspecified; D64.9 Anemia, unspecified; I73.9 Peripheral vascular disease, unspecified; H40.9 Unspecified glaucoma; I12.9 Hypertensive chronic kidney disease with stage 1 through stage 4 chronic kidney disease, or unspecified chronic kidney disease; I71.4 Abdominal aortic aneurysm, without rupture; E78.5 Hyperlipidemia, unspecified; N18.9 Chronic kidney disease, unspecified; R79.89 Other specified abnormal findings of blood chemistry; F32.9 Major depressive disorder, single episode, unspecified; I25.2 Old myocardial infarction; Z87.891 Personal history of nicotine dependence
CPT/HCPCS: 36415; 71045; 76770; 80048; 80053; 80069; 82553; 82570; 82728; 83540; 83550; 83735; 83970; 84100; 84300; 84439; 84443; 84480; 84484; 85025; 93005; 93010; 94640; 94644; J1644; J1650; J7611; J7620

== ENCOUNTER 2018-06-14 13:46 | Emergency (ER) | payer MEDICARE, MEDICAID ==
[2018-06-14 14:12] LABS: #Lymphocytes 0.8 thou/uL (1.20-3.40); #Monocytes 0.4 thou/uL (0.11-0.59); #Neutrophils 3.3 thou/uL (1.40-6.50); %Basophils 0.4 % (0.0-1.0); %Eosinophils 0.4 % (0.0-10.0); %Lymphocytes 18.1 % (21.0-51.0); %Monocytes 8.9 % (0.0-10.0); %Neutrophils 72.2 % (42.0-75.0); Hemoglobin 10.1 g/dL (14.0-18.0); Mean Corpuscular Hemoglobin 26.8 pg (27.0-31.0); Mean Corpuscular Volume 86.3 fL (78.0-98.0); Mean Platelet Volume 7.6 fL (7.4-10.4); Platelet Count 188 thou/uL (130-400); RBC Distribution Width 13.1 % (11.5-14.5); Red Blood Cell (RBC) Count 3.76 mill/uL (4.70-6.10); White Blood Cell (WBC) Count 4.5 thou/uL (4.8-10.8)
--- NOTE | 2018-06-14 14:17 | RAD ---
EXAM: Chest PA and lateral: HISTORY: Dyspnea COMPARISON: 09/05/2017 FINDINGS: Heart: Upper normal. There is a coronary artery stent. Aorta: There is elongation. Pulmonary vessels: Normal Costophrenic angles: Costophrenic angles are clear. Lungs: No consolidation or mass. Stable hyperinflation. Pneumothorax: No pneumothorax Osseous structures: No osseous abnormalities IMPRESSION: No acute cardiopulmonary process. COPD. Hyperinflation. No significant interval change.
[2018-06-14 14:34] LABS: ALT (SGPT) 11 U/L (8-55); AST (SGOT) 11 U/L (5-34); Albumin 3.4 g/dL (3.4-4.8); Alkaline Phosphatase 79 U/L (40-150); Anion Gap 15 mmol/L (10-20); BUN (Urea Nitrogen) 56 mg/dL (8.4-25.7); Bilirubin, Total 0.2 mg/dL (0.2-1.2); Calc. Creatinine Clearance 0 mL/min (70-130); Calcium 9.1 mg/dL (7.8-10.44); Carbon Dioxide 23 mmol/L (23-31); Chloride 109 mmol/L (98-107); Estimated GFR-MDRD 23; Globulin 3.7 g/dL (2.4-3.5); Glucose 83 mg/dL (83-110); Potassium 3.7 mmol/L (3.5-5.1); Protein, Total 7.1 g/dL (5.8-8.1); Sodium 143 mmol/L (136-145)
== END 2018-06-14 16:11 | disposition home or self-care (01) ==
LOC: ERS 13:46
DX: J44.9 Chronic obstructive pulmonary disease, unspecified (principal); E78.5 Hyperlipidemia, unspecified; I10 Essential (primary) hypertension; I25.2 Old myocardial infarction; Z87.891 Personal history of nicotine dependence; Z79.82 Long term (current) use of aspirin; Z79.899 Other long term (current) drug therapy
CPT/HCPCS: 71046; 80053; 82553; 84484; 85025; 93005; 94640; 94760; J7620